=== PATIENT | female | born 1995 | race Caucasian/White ===

== ENCOUNTER 2017-01-17 16:41 | Observation (INO) | payer BC ==
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
[2017-01-17 17:52] LABS: CHLORIDE,CL 109 mmol/L (98-110); SODIUM,NA 139 mmol/L (136-146)
[2017-01-17 18:03] LABS: ACETAMINOPHEN < 3.0 ug/mL
[2017-01-17] MEDS ORDERED: cloNIDine 0.1 MG Tab PO PRN (21:04)
--- NOTE | 2017-01-17 21:04 | PCM.SN ---
- Free Text/Narrative Note: [id number]
[2017-01-17] MEDS ORDERED: Sodium Chloride 0.45% 1,000 ML IV SCH (22:30)
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
[2017-01-18 08:23] VITALS: BP 110/60
[2017-01-18] MEDS ORDERED: cloNIDine 0.1 MG Tab PO SCH (10:00)
--- NOTE | 2017-01-18 10:56 | PCM.PN ---
- General Info Date of Service: 01/18/17 Admission Dx/Problem (Free Text): Patient crying in am . She is concerned about her work and she says she would like to go home. She is afraid that for being admitted for psychiatric care she will loose her job if her employer finds out. Attempt to have telepsych consult failed , due to not being able to connect. Recommended patient transfer to [place]. Discussed with Dr. Orourke , psychiatrist . He accepted patient. Dw with Er physician Dr. Webber, he accepted patient. Dr. Orourke thinks she has to much stress going on . Patient Bp at admission was real 193/103. As per her patient had hypertension of . As per her she had intrusive suicidal thoughts daily for the past 1 mo. As per she was screaming at the baby when she cried and bounce her in the bouncer harder , when she was upset or when baby cried. - Review of Systems General: Reports: no symptoms HEENT: Reports: no symptoms Pulmonary: Reports: no symptoms Cardiovascular: Reports: no symptoms Gastrointestinal: Reports: No symptoms Genitourinary: Reports: no symptoms Musculoskeletal: Reports: no symptoms Skin: Reports: no symptoms Neurological: Reports: no symptoms Psychiatric: Reports: no symptoms - Patient Data Vitals - most recent: Last Vital Signs Temp 99.1 F 01/18/17 08:00 Pulse 62 01/18/17 08:00 Resp 18 01/18/17 08:00 BP 110/60 01/18/17 10:13 Pulse Ox 97 01/18/17 08:00 Weight - most recent: 166 lb 7.184 oz I&O - last 24 hours: Intake & Output 01/17/17 01/18/17 01/18/17 22:59 06:59 14:59 Intake Total 240 Balance 240 Med Orders - Current: Current Medications Clonidine HCl (Catapres) 0.1 mg PO Q8H VENANCIO Last Admin: 01/18/17 10:13 Dose: Not Given Diphenhydramine HCl (Benadryl) 50 mg PO BEDTIME VENANCIO Lorazepam (Ativan) 2 mg PO BEDTIME VENANCIO Quetiapine Fumarate (Seroquel) 100 mg PO BEDTIME VENANCIO Discontinued Medications Clonidine HCl (Catapres) 0.1 mg PO Q8H PRN PRN Reason: sbp>160 Sodium Chloride (Sodium Chloride 0.45%) 1,000 mls @ 150 mls/hr IV ASDIRECTED VENANCIO - Exam General: alert, oriented HEENT: Pupils equal, Pupils reactive, EOMI, Mucous membr. moist/pink Neck: supple Lungs: Clear to auscultation, Normal respiratory effort Cardiovascular: regular rate, regular rhythm Abdomen: bowel sounds present, soft, no tenderness, no distension Back Exam: normal inspection, full range of motion Extremities: no edema Skin: warm, dry, intact Wound/Incisions: healing well Neurological: no new focal deficit Psy/Mental Status: alert, normal affect, labile mood, anxious, depressed. No: agitated, suicidal ideation, homicidal ideation, hallucinations - Problem List Review Problem List Initiated/Reviewed/Updated: Yes - My Orders Last 24 Hours: My Active Orders 01/17/17 20:18 Patient Status [ADT] Routine Oxygen Therapy [RC] PRN Up ad Kassandra [RC] ASDIRECTED VTE/DVT Education [RC] PER UNIT ROUTINE Vital Signs [RC] Q4H Resuscitation Status Routine 01/18/17 10:00 cloNIDine [Catapres] 0.1 mg PO Q8H 01/18/17 10:49 Ready for Discharge [RC] PER UNIT ROUTINE 01/18/17 21:00 LORazepam [Ativan] 2 mg PO BEDTIME QUEtiapine [SEROquel] 100 mg PO BEDTIME diphenhydrAMINE [Benadryl] 50 mg PO BEDTIME A/p psychiatric disorder with suicidal ideation patient to be transferred to [place], accepted by psychiatrist Dr. Orourke and Er physician Dr. Webber. Denies suicidal thoughts today , denies homicidal thoughts. Elevated blood pressure / could be due to stress , hx of hypertension of - f/up Bp and if persistently elevated treat it
[2017-01-18] MEDS ORDERED: diphenhydrAMINE 50 MG Cap PO SCH (21:00)
[2017-01-18] MEDS ORDERED: QUEtiapine 100 MG Tab PO SCH (21:00)
[2017-01-18] MEDS ORDERED: LORazepam 0.5 MG Tab PO SCH (21:00)
--- NOTE | 2017-01-19 16:54 | PCM.SN ---
- Free Text/Narrative Note: [id number]
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
== END 2017-01-18 11:25 ==
LOC: MW.ED 16:41 → MW.ICU 18:37
PROVIDERS: ADMIT Internal Medicine; ATTEND Internal Medicine
DX: R45.851 Suicidal ideations (principal); I10 Essential (primary) hypertension; Z98.890 Other specified postprocedural states
CPT/HCPCS: 80053; 80305; 81001; 81025; 83735; 84443; 84482; 85025; 93005; 99285; G0378; G0480; 36415

== ENCOUNTER 2017-04-28 21:26 | Emergency (ER) | payer BC ==
--- NOTE | 2017-04-28 22:05 | EDM.PDOC ---
ED HPI GENERAL MEDICAL PROBLEM - General Chief Complaint: ENT Problem Stated Complaint: PAIN RT EAR Time Seen by Provider: 04/28/17 22:20 Source of Information: Reports: Patient History Limitations: Reports: No Limitations - History of Present Illness INITIAL COMMENTS - FREE TEXT/NARRATIVE: HISTORY AND PHYSICAL: History of present illness: [21-year-old female with no significant past medical history now complaining of right earache. Patient's had pain in her right ear for several days. No fevers chills sweats or shaking chills. No headache or stiff neck. Otherwise asymptomatic.] Review of systems: As per history of present illness and below otherwise all systems reviewed and negative. Past medical history: As per history of present illness and as reviewed below otherwise noncontributory. Surgical history: As per history of present illness and as reviewed below otherwise noncontributory. Social history: No reported history of drug or alcohol abuse. Family history: As per history of present illness and as reviewed below otherwise noncontributory. Physical exam: HEENT: Atraumatic, normocephalic, pupils reactive, negative for conjunctival pallor or scleral icterus, mucous membranes moist, throat clear, neck supple, nontender, trachea midline. Right TM with erythema bulging and loss of landmarks no perforation normal EAC nontender mastoid no preauricular or cervical, left TM and EAC normal lymphadenopathy Lungs: Clear to auscultation, breath sounds equal bilaterally, chest nontender. Heart: S1S2, regular, negative for clicks, rubs, or JVD. Abdomen: Soft, nondistended, nontender. Negative for masses or hepatosplenomegaly. Negative for costovertebral tenderness. Pelvis: Stable nontender. Genitourinary: Deferred. Rectal: Deferred. Extremities: Atraumatic, negative for cords or calf pain. Neurovascular unremarkable. Neuro: Awake, alert, oriented. Cranial nerves II through XII unremarkable. Cerebellum unremarkable. Motor and sensory unremarkable throughout. Exam nonfocal. Diagnostics: [] Therapeutics: [] Impression: [] Plan: [Signs and symptoms consistent with otitis media right ear in a well-appearing patient with unremarkable vital signs. No further workup or treatment indicated. Amoxicillin given in ED and prescribed. Patient aware to take Motrin Tylenol and follow-up PCP for reevaluation and referral to your nose and throat as needed for treatment failure or further workup] Definitive disposition and diagnosis as appropriate pending reevaluation and review of above. 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 Psychiatric History: Reports: Anxiety, Depression - Infectious Disease History Infectious Disease History: Reports: None - Past Surgical History Other HEENT Surgeries/Procedures: "hematoma removal under eye" Cardiovascular Surgical History: Reports: None GI Surgical History: Reports: None Social & Family History - Family History OBGYN: Reports: - Tobacco Use Smoking Status *Q: Never Smoker Years of Tobacco use: 2 Packs/Tins Daily: 1 Used Tobacco, but Quit: No Month Tobacco Last Used: january Second Hand Smoke Exposure: Yes - Caffeine Use Caffeine Use: Reports: None - Alcohol Use Days Per Week of Alcohol Use: 1 Number of Drinks Per Day: 1 Total Drinks Per Week: 1 - Recreational Drug Use Recreational Drug Use: No ED ROS GENERAL - Review of Systems Review Of Systems: See Below (History of present illness) ED EXAM, GENERAL - Physical Exam Exam: See Below (History of present illness) Course - Vital Signs Last Recorded V/S: Last Vital Signs Temp 36.8 C 04/28/17 21:32 Pulse 74 04/28/17 21:32 Resp 16 04/28/17 21:32 BP 134/77 04/28/17 21:32 Pulse Ox 98 04/28/17 21:32 - Orders/Labs/Meds Meds: Medications Discontinued Medications Generic Name Dose Route Start Last Admin Trade Name Freq PRN Reason Stop Dose Admin Amoxicillin 500 mg 04/28/17 22:28 04/28/17 22:42 Amoxil PO 04/28/17 22:29 500 mg ONETIME ONE Administration Azithromycin 500 mg 04/28/17 22:22 04/28/17 22:43 Zithromax PO 04/28/17 22:23 Not Given ONETIME ONE Departure - Departure Time of Disposition: 22:34 Disposition: Home, Self-Care 01 Condition: Good Clinical Impression: Otitis media of right ear - Discharge Information Prescriptions: Amoxicillin 500 mg PO TID #30 tab Instructions: Otitis Media, Adult, [id number] Referrals: PCP,None [Primary Care Provider] - Forms: ED Department Discharge Additional Instructions: You have a right middle ear infection also called otitis media. Finish amoxicillin as prescribed. Take 800 mg of ibuprofen every 6 hours as needed for pain. He may also take Tylenol as needed for residual pain rest and drink plenty of fluids. Follow-up with your Dr. for reevaluation and referral to an ear nose and throat doctor if your symptoms persist or worsen.
[2017-04-28] MEDS ORDERED: Azithromycin 250 MG Tab PO ONE (22:22)
[2017-04-28] MEDS ORDERED: Amoxicillin 500 MG Cap PO ONE (22:28)
[2017-04-29 04:28] VITALS: BP 127/68
== END 2017-04-28 23:00 | disposition home or self-care (01) ==
LOC: MW.ED 21:26
DX: H66.91 Otitis media, unspecified, right ear (principal); F41.9 Anxiety disorder, unspecified; F32.9 Major depressive disorder, single episode, unspecified; Z79.899 Other long term (current) drug therapy
CPT/HCPCS: 99282; A9270; 99283

== ENCOUNTER 2020-09-07 10:17 | Emergency (ER) | payer BC ==
--- NOTE | 2020-09-07 10:39 | EDM.PDOC ---
ED HPI GENERAL MEDICAL PROBLEM - General Chief Complaint: Genitourinary Problem Stated Complaint: UTI Time Seen by Provider: 09/07/20 10:21 Source of Information: Reports: Patient History Limitations: Reports: No Limitations - History of Present Illness INITIAL COMMENTS - FREE TEXT/NARRATIVE: 24-year-old female with no past medical history presenting with painful urination. She has a history of UTIs in the past and is concerned that she has another UTI. Symptoms started around 2:00 this morning. Denies any fever, chills, flank pain, abdominal pain, or history of immunosuppression. No vaginal bleeding. Past medical history: Reviewed, no additional pertinent history. Surgical history: Reviewed in system, no additional pertinent history. Social history: Reviewed in system, no additional pertinent history. Family history: Reviewed in system, no additional pertinent history. PHYSICAL EXAM Vital signs reviewed. Nursing notes reviewed. Constitutional: Awake, alert, non-distressed. Head: Normocephalic, atraumatic. Eyes: EOMI, conjunctiva normal, no discharge, no scleral icterus. Ears, Nose, Throat: External ears and nose normal, moist oral mucosa. Cardiovascular: 2+ radial pulse, capillary refill less than 2 seconds. Pulmonary: normal work of breathing, no accessory muscle use. Abdomen/GI: Soft, nontender, nondistended, no guarding or rigidity, no masses. Musculoskeletal: No deformities. Integumentary: Appropriate color for ethnicity, warm, dry, no pallor or jaundice, no rash. Neurologic: Alert, answering questions appropriately, normal speech, no facial droop, moving all extremities well. Psychiatric: Appropriate mood and affect, normal thought process. URINARY Pain Score (Numeric/FACES): 4 - Related Data Allergies Allergy/AdvReac Type Severity Reaction Status Date / Time No Known Allergies Allergy Verified 09/07/20 10:33 Home Meds: Home Meds Control 04/28/17 [History] Nortriptyline 40 mg PO DAILY 04/28/17 [History] nitrofurantoin macrocrystaL [Nitrofurantoin] 100 mg PO BID 5 Days #10 capsule 09/07/20 [Rx] Past Medical History - Past Health History Medical/Surgical History: Denies Medical/Surgical History Cardiovascular History: Reports: None Respiratory History: Reports: None Gastrointestinal History: Reports: None MANAGER RELOCATION History: Reports: None Psychiatric History: Reports: Anxiety, Depression - Infectious Disease History Infectious Disease History: Reports: None - Past Surgical History Other HEENT Surgeries/Procedures: "hematoma removal under eye" Cardiovascular Surgical History: Reports: None GI Surgical History: Reports: None Social & Family History - Family History OBGYN: Reports: - Caffeine Use Caffeine Use: Reports: None ED ROS GENERAL - Review of Systems Review Of Systems: See Below ED EXAM, RENAL/ - Physical Exam Exam: See Below Course - Vital Signs Text/Narrative:: 24-year-old female with dysuria. Symptoms seem consistent with an uncomplicated UTI. Symptoms do not suggest pyelonephritis and she looks well and nontoxic. Abdomen soft and nontender. We will plan to empirically treat with nitrofurantoin and encourage primary care follow-up. Recommended Tylenol and Motrin as needed for pain. Stable to discharge home. All questions answered prior to discharge. Last Recorded V/S: Last Vital Signs Temp 37.0 C 09/07/20 10:25 Pulse 89 09/07/20 10:25 Resp 16 09/07/20 10:25 BP 120/83 09/07/20 10:25 Pulse Ox 99 09/07/20 10:25 Departure - Departure Time of Disposition: 10:37 Disposition: Home, Self-Care 01 Condition: Good Clinical Impression: Urinary tract infection Qualifiers: Urinary tract infection type: acute cystitis Hematuria presence: without hematuria Qualified Code(s): N30.00 - Acute cystitis without hematuria - Discharge Information *PRESCRIPTION DRUG MONITORING PROGRAM REVIEWED*: Not Applicable *COPY OF PRESCRIPTION DRUG MONITORING REPORT IN PATIENT YOLANDA: Not Applicable Prescriptions: nitrofurantoin macrocrystaL [Nitrofurantoin] 100 mg PO BID 5 Days #10 capsule Instructions: Urinary Tract Infection, Adult Referrals: Alondra Calderon CHRONIC MANAGER [Primary Care Provider] - 1 Week (As needed.) Forms: ED Department Discharge Additional Instructions: You were seen in the emergency department for painful urination. We going to treat you for UTI with antibiotics, be sure to finish the whole bottle. You can take [id number] Tylenol or Motrin as needed for pain. Follow-up with your primary care clinic with any concerns. Warning signs to come back to the ER include fever of 100.4 or higher, chills, severe flank or abdominal pain, or any other new or worsening symptoms. Please return the emergency department immediately if your symptoms worsen or if you feel worse. Thank you for choosing the [facility] emergency department in [place] for your medical needs today. It was a pleasure caring for you. The following information is given to patients seen in the emergency department who are being discharged. This information is to outline your options for follow-up care. We provide all patients seen in our emergency department with a follow-up referral. The need for follow-up, as well as the timing and circumstances, are variable depending upon the specifics of your emergency department visit. If you don't have a primary care physician on staff, we will provide you with a referral. We always advise you to contact your personal physician following an emergency department visit to inform them of the circumstance of the visit and for follow-up with them and/or the need for any referrals to a consulting specialist. The emergency department will also refer you to a specialist when appropriate. This referral assures that you have the opportunity for follow-up care with a specialist. All of these measure are taken in an effort to provide you with optimal care, which includes your follow-up. Under all circumstances we always encourage you to contact your private physician who remains a resource for coordinating your care. When calling for follow-up care, please make the office aware that this follow-up is from your recent emergency room visit. If for any reason you are refused follow-up, please contact the [facility] Emergency Department at and asked to speak to the emergency department charge nurse. If you do not have a primary care physician that is caring for you, you can contact these clinics below to set up an appointment to establish care: Sarah Beth Melendez [facility] - Primary Care [address] [place], [place] [id number] [facility] [address] [place] [id number] Sepsis Event Note (ED) - Evaluation Sepsis Screening Result: No Definite Risk - Focused Exam Vital Signs: Vital Signs Temp Pulse Resp BP Pulse Ox 09/07/20 10:25 37.0 C 89 16 120/83 99
[2020-09-07 10:52] VITALS: BP 118/76; PULSE 98
== END 2020-09-07 10:52 | disposition home or self-care (01) ==
LOC: MW.ED 10:17
DX: N30.00 Acute cystitis without hematuria (principal)
CPT/HCPCS: 99282; 99283

== ENCOUNTER 2021-08-25 08:12 | Day surgery (SDC) | payer OTHER, BC ==
[2021-08-25] MEDS ORDERED: HYDROmorphone 1 MG/ML Syringe IVPUSH PRN (08:28)
[2021-08-25] MEDS ORDERED: Metoclopramide 10 MG/2 ML SDV IVPUSH PRN (08:28)
[2021-08-25] MEDS ORDERED: Ondansetron 4 MG/2 ML SDV IVPUSH PRN (08:28)
[2021-08-25] MEDS ORDERED: Albuterol 0.083% 2.5 MG/3 ML Neb Soln NEB PRN (08:28)
[2021-08-25] MEDS ORDERED: fentaNYL 100 MCG/2 ML SDV IVPUSH PRN (08:28)
[2021-08-25] MEDS ORDERED: Naloxone 0.4 MG/ML SDV IVPUSH PRN (08:28)
[2021-08-25] MEDS ORDERED: Morphine 2 MG/ML SYRINGE IVPUSH PRN (08:28)
[2021-08-25] MEDS ORDERED: Scopolamine 1.5 MG Transdermal Patch ONE (08:31)
--- NOTE | 2021-08-25 09:01 | PCM.PREANE ---
Preanesthetic Assessment - Anesthesia/Transfusion/Family Hx Anesthesia History: Prior Anesthesia Without Reaction Transfusion History: No Prior Transfusion(s) - Review of Systems General: No Symptoms Pulmonary: No Symptoms Cardiovascular: No Symptoms Gastrointestinal: No Symptoms Neurological: No Symptoms Other: Reports: None - Physical Assessment NPO Status Date: 08/25/21 NPO Status Time: 00:00 Vital Signs: Last Vital Signs Temp 97.2 F 08/25/21 08:26 Pulse 83 08/25/21 08:26 Resp 16 08/25/21 08:26 BP 135/90 08/25/21 08:26 Pulse Ox 97 08/25/21 08:26 Height: 5 ft 9 in Weight: 184 lb ASA Class: 3 Mental Status: Alert & Oriented x3 Airway Class: Mallampati = 2 Dentition: Reports: Normal Dentition Thyro-Mental Finger Breadths: 3 Mouth Opening Finger Breadths: 3 ROM/Head Extension: Full Lungs: Clear to Auscultation, Normal Respiratory Effort Cardiovascular: Regular Rate, Regular Rhythm - Allergies Allergies/Adverse Reactions: Allergies Allergy/AdvReac Type Severity Reaction Status Date / Time No Known Allergies Allergy Verified 09/07/20 10:33 - Blood Blood Available: No - Anesthesia Plan Pre-Op Medication Ordered: Other - Acknowledgements Anesthesia Type Planned: General Anesthesia Pt an Appropriate Candidate for the Planned Anesthesia: Yes Alternatives and Risks of Anesthesia Discussed w Pt/Guardian: Yes Pt/Guardian Understands and Agrees with Anesthesia Plan: Yes PreAnesthesia Questionnaire - Past Health History Medical/Surgical History: Denies Medical/Surgical History HEENT History: Reports: None Cardiovascular History: Reports: None Respiratory History: Reports: Asthma Other Respiratory History: exercise induced asthma Gastrointestinal History: Reports: None Genitourinary History: Reports: Other (See Below) Other Genitourinary History: presently on antibiotics for UTI UTILITY TENDER CARDING History: Reports: Musculoskeletal History: Reports: Back Pain, Chronic, Fracture, Neck Pain, Chronic Other Musculoskeletal History: hx fx leg as a child Neurological History: Reports: None Psychiatric History: Reports: Anxiety, Depression Endocrine/Metabolic History: Reports: None Hematologic History: Reports: None Immunologic History: Reports: None Oncologic (Cancer) History: Reports: None Dermatologic History: Reports: None - Infectious Disease History Infectious Disease History: Reports: None - Past Surgical History Head Surgeries/Procedures: Reports: None HEENT Surgical History: Reports: Other (See Below) Other HEENT Surgeries/Procedures: "hematoma removal under eye" as a child Cardiovascular Surgical History: Reports: None Respiratory Surgical History: Reports: None GI Surgical History: Reports: None Female Surgical History: Reports: None Endocrine Surgical History: Reports: None Neurological Surgical History: Reports: None Musculoskeletal Surgical History: Reports: None Oncologic Surgical History: Reports: None Dermatological Surgical History: Reports: None - SUBSTANCE USE Tobacco Use Status *Q: Never Tobacco User - HOME MEDS Home Medications: Home Meds Albuterol Sulfate [Albuterol Sulfate HFA] 2 puff INH ASDIRECTED 08/20/21 [History] - CURRENT (IN HOUSE) MEDS Current Meds: Current Medications Albuterol (Albuterol 0.083% 2.5 Mg/3 Ml Neb Soln) 2.5 mg NEB ONETIME PRN PRN Reason: Wheezing Droperidol (Droperidol 5 Mg/2 Ml Sdv) 0.625 mg IVPUSH ONETIME PRN PRN Reason: Nausea/Vomiting Fentanyl (Fentanyl 100 Mcg/2 Ml Sdv) 50 mcg IVPUSH Q5M PRN PRN Reason: Pain (mild 1-3) Hydromorphone HCl (Hydromorphone 1 Mg/Ml Syringe) 1 mg IVPUSH Q10M PRN PRN Reason: Pain (moderate 4-6) Metoclopramide HCl (Metoclopramide 10 Mg/2 Ml Sdv) 10 mg IVPUSH ONETIME PRN PRN Reason: Nausea/Vomiting Morphine Sulfate (Morphine 2 Mg/Ml Syringe) 2 mg IVPUSH Q10M PRN PRN Reason: Pain (severe 7-10) Naloxone HCl (Naloxone 0.4 Mg/Ml Sdv) 0.1 mg IVPUSH ASDIRECTED PRN PRN Reason: Respiratory Depression Ondansetron HCl (Ondansetron 4 Mg/2 Ml Sdv) 4 mg IVPUSH ONETIME PRN PRN Reason: Nausea/Vomiting Discontinued Medications Scopolamine (Scopolamine 1.5 Mg Transdermal Patch) Confirm Administered Dose 1.5 mg .ROUTE .STK-MED ONE Stop: 08/25/21 08:32
[2021-08-25] MEDS ORDERED: Dexmedetomidine 200 MCG/2 ML SDV ONE (09:20)
[2021-08-25] MEDS ORDERED: Midazolam 1 MG/ML 2 ML SDV ONE (09:20)
[2021-08-25] MEDS ORDERED: fentaNYL 100 MCG/2 ML SDV ONE (09:20)
[2021-08-25] MEDS ORDERED: Ondansetron 4 MG/2 ML SDV ONE (09:20)
[2021-08-25] MEDS ORDERED: Sugammadex Sodium 200 MG/2 ML VIAL ONE (09:20)
[2021-08-25] MEDS ORDERED: Dexamethasone 4 MG/ML 5 ML MDV ONE (09:20)
[2021-08-25] MEDS ORDERED: Lidocaine 2% 5 ML SDV ONE (09:20)
[2021-08-25] MEDS ORDERED: Rocuronium Bromide 50 MG/5 ML Syringe ONE (09:20)
[2021-08-25] MEDS ORDERED: Ketorolac 30 MG/ML SDV ONE (09:20)
[2021-08-25] MEDS ORDERED: Propofol 200 MG/20 ML SDV ONE (09:20)
[2021-08-25] MEDS ORDERED: Lidocaine 1% with EPINEPHrine 1:100,000 20 ML MDV ONE (09:53)
[2021-08-25] MEDS ORDERED: Methylene Blue 50 MG/10 ML Ampule ONE (09:53)
[2021-08-25] MEDS ORDERED: Bupivacaine 0.25% 10 ML SDV ONE (10:51)
[2021-08-25] MEDS ORDERED: Bupivacaine 0.5% 10 ML SDV ONE (10:51)
--- NOTE | 2021-08-25 11:53 | PCM.OPNOTE ---
- General Post-Op/Procedure Note Date of Surgery/Procedure: 08/25/21 Operative Procedure(s): Diagnostic laparoscopy with chromotubation Findings: Normal appearing anteverted uterus, sounded to 8cm. Normal appearing right fallopian tube and ovary. Right fallopian tube readily filled with dye during chromotubation. Left ovary with small corpus luteal cyst. Left fallopian tube normal appearing except for a small, <1cm simple appearing paratubal cyst. Left fallopian tube sluggish to fill with dye during chromotubation. Cervix with small portions of non-uptake of Lugol's solution near the cervical os at the 12 o'clock and 6 o'clock positions. Thin, translucent adhesions noted from the omentum to the left pelvic side wall. Pre Op Diagnosis: Pelvic pain. Cervical dysplasia Post-Op Diagnosis: Pelvic pain. Cervical dysplasia Anesthesia Technique: General ET Tube Primary Surgeon: Cady Manrique Anesthesia Provider: Fidelina Posey Pleasure Craft Sailor: Alida Delgado Pathology: Anterior and posterior ectocervix. Endocervix. Fluid Replacement, Intraop: 800 Output, Urine Amount: 30 EBL in mLs: 30 Complications: None known Condition: Good Free Text/Narrative:: Dictation #[id number]
--- NOTE | 2021-08-25 11:58 | PCM48HPAN ---
Post Anesthesia Note - EVALUATION WITHIN 48HRS OF ANESTHETIC Vital Signs in Normal Range: Yes Patient Participated in Evaluation: Yes Respiratory Function Stable: Yes Airway Patent: Yes Cardiovascular Function Stable: Yes Hydration Status Stable: Yes Pain Control Satisfactory: Yes Nausea and Vomiting Control Satisfactory: Yes Mental Status Recovered: Yes Vital Signs: Last Vital Signs Temp 97.2 F 08/25/21 08:26 Pulse 83 08/25/21 08:26 Resp 16 08/25/21 08:26 BP 135/90 08/25/21 08:26 Pulse Ox 97 08/25/21 08:26
--- NOTE | 2021-08-25 11:58 | PCM.POSTAN ---
POST ANESTHESIA ASSESSMENT - MENTAL STATUS Mental Status: Alert, Oriented - VITAL SIGNS Vital Signs: Last Vital Signs Temp 97.2 F 08/25/21 08:26 Pulse 83 08/25/21 08:26 Resp 16 08/25/21 08:26 BP 135/90 08/25/21 08:26 Pulse Ox 97 08/25/21 08:26 - RESPIRATORY Respiratory Status: Respiratory Rate WNL, Airway Patent, O2 Saturation Stable - CARDIOVASCULAR CV Status: Pulse Rate WNL, Blood Pressure Stable - GASTROINTESTINAL GI Status: No Symptoms - POST OP HYDRATION Hydration Status: Adequate & Stable
[2021-08-25 13:12] VITALS: BP 106/53; PULSE 63
--- NOTE | 2021-08-25 13:23 | OR ---
SURGEON: CADY ROBERTSON MD DATE OF PROCEDURE: 08/25/2021 PREOPERATIVE DIAGNOSES: 1. Pelvic pain. 2. Cervical dysplasia. POSTOPERATIVE DIAGNOSES: 1. Pelvic pain. 2. Cervical dysplasia. PROCEDURE PERFORMED: 1. Diagnostic laparoscopy with chromotubation. 2. Loop electro-excisional procedure. PRIMARY SURGEON: Cady Robertson MD AUTOMATION ARCHITECT: Alida Delgado M.D. ANESTHESIA: General endotracheal. COMPLICATIONS: None known. ANESTHESIA PROVIDER: Fidelina Noonan CRNA FINDINGS: Normal-appearing anteverted uterus sounded to 8 cm and normal-appearing right fallopian tube and ovary. Right fallopian tube readily filled with dye during the chromotubation. Left ovary with small corpus luteal cyst. Left fallopian tube, normal-appearing except for a small less than 1 cm simple-appearing paratubal cyst located near the fimbria. Left fallopian tube sluggish to fill with dye during chromotubation. Cervix with small portions of nonuptake of Lugol solution near the cervical os at the 12 and 6 o'clock positions. INDICATIONS: The patient is a 25-year-old female with a history of a high-grade Pap smear in October 2020 followed by colposcopy with biopsies of CHE 2. In addition, she developed left pelvic pain especially during intercourse and had multiple imaging modalities to assess this area with possible adnexal mass. PROCEDURE IN DETAIL: The patient was taken to the operating room where anesthesia was introduced, and a time-out was held. She was prepped and draped in normal sterile fashion. Attention was turned to the vaginal portion of the laparoscopy. A speculum was introduced into the vagina to visualize the cervix, which was grasped at 12 o'clock with a single-tooth tenaculum. The cervix was then serially dilated to an 8 Hegar, and a Zumi manipulator was inserted without difficulty. The single- tooth tenaculum and speculum were then removed, and attention was then turned to the abdominal portion of the procedure. Local anesthetic was injected infraumbilically, and a 5 mm incision was made with a scalpel. Veress needle was inserted into the incision; however, difficulty was noted achieving entrance to the peritoneal cavity with a Veress needle. The abdominal cavity was then entered via direct visualization with the trocar and camera. After adequate insufflation of the abdomen, the patient was placed into Trendelenburg position, and the left lower quadrant port was placed after the introduction of local anesthetic. The trocar was placed under direct visualization. Findings noted as above. Small adhesions noted between the omentum and the left pelvic sidewall, which were gently taken down. Hemostasis was noted. Chromotubation was then performed. Findings noted as above. All instruments were then removed from the abdomen, and after adequate desufflation, the 2 port sites were then closed subcutaneously with 4-0 Monocryl and bandages. Attention was then turned to the LEEP procedure. The Zumi manipulator was removed. A coated speculum was then inserted into the vagina along with sidewall retractors. Local anesthetic with epinephrine was then injected circumferentially around the cervix. Lugol's solution was then applied to the cervix finding things noted as above. A 20 x 8 electrode was then used to remove the ectocervix anteriorly. Similar procedure was performed posteriorly, and the specimens were marked appropriately with suture at the 12 and 6 o'clock positions. A 10 x 4 square electrode was then used to obtain a sample from the endocervix. The area of the LEEP procedure was then treated with cautery via rollerball. Hemostasis was achieved. Monsel solution was placed over the cervix, and hemostasis was noted. Estimated blood loss for the procedure was 30 mL. The patient tolerated the procedure well. She received 2 g of Ancef prophylactically prior to the procedure, was taken to the PACU in stable condition for recovery. ALDAIR CONWAY /[id number] GOSIA
== END 2021-08-25 13:14 | disposition home or self-care (01) ==
LOC: MW.SDS 08:12
PROVIDERS: ATTEND Obstetrics & Gynecology
DX: D06.0 Carcinoma in situ of endocervix (principal); E66.9 Obesity, unspecified; F41.9 Anxiety disorder, unspecified; F32.A Depression, unspecified; N39.0 Urinary tract infection, site not specified; Z79.899 Other long term (current) drug therapy; Z68.27 Body mass index [BMI] 27.0-27.9, adult
CPT/HCPCS: 57522; 58350; 88307; J0131; J1100; J1885; J2250; J2405; J2704; J3010; J3490; 00952

== ENCOUNTER 2022-07-12 20:37 | Emergency (ER) | payer BC ==
[2022-07-12 22:07] LABS: CARBON DIOXIDE,CO2 26.4 mmol/L (21.0-32.0); POTASSIUM,K 3.8 mmol/L (3.5-5.1)
[2022-07-12 22:20] VITALS: BP 114/65; PULSE 79
== END 2022-07-12 22:21 | disposition still patient (30) ==
LOC: MW.ED 20:37
DX: O9A.213 Injury, poisoning and certain other consequences of external causes complicating pregnancy, third trimester (principal); T75.4XXA Electrocution, initial encounter; J45.909 Unspecified asthma, uncomplicated; Z3A.33 33 weeks gestation of pregnancy
CPT/HCPCS: 36415; 80048; 83735; 84484; 85025; 93005; 93010; 99283; 99284

== ENCOUNTER 2022-08-28 08:32 | Inpatient (IN) | payer BC ==
[2022-08-28] MEDS ORDERED: Citric Acid/Sodium Citrate Solution 30 ML Cup PO ONE (10:50)
[2022-08-28] MEDS ORDERED: Famotidine 20 MG/2 ML SDV IV ONE (10:50)
[2022-08-28] MEDS ORDERED: ceFAZolin 1 GM Vial IVPUSH ONE (11:00)
[2022-08-28] MEDS ORDERED: Ropivacaine 0.5% 5 MG/ML 30 ML SDV INFILT ONE (11:00)
[2022-08-28] MEDS ORDERED: Ondansetron 4 MG/2 ML SDV IVPUSH ONE (11:00)
[2022-08-28] MEDS ORDERED: Morphine PF 10 MG/10 ML SDV IVPUSH ONE (11:00)
[2022-08-28] MEDS ORDERED: Dexmedetomidine 200 MCG/2 ML SDV IV ONE (11:00)
[2022-08-28] MEDS ORDERED: Dexamethasone 4 MG/ML 5 ML MDV IVPUSH ONE (11:00)
[2022-08-28] MEDS ORDERED: Phenylephrine HCl In 0.9% NaCl 1 MG/10 ML Vial IVPUSH ONE (11:00)
[2022-08-28] MEDS ORDERED: Bupivacaine 0.5% 10 ML SDV INFILT ONE (11:00)
[2022-08-28] MEDS ORDERED: Water For Injection, Sterile 20 ML SDV INJECT ONE (11:00)
[2022-08-28] MEDS ORDERED: Lactated Ringers 1,000 ML IV ONE ×2 (11:00→12:08)
[2022-08-28] MEDS ORDERED: Oxytocin 10 Units/1 ML SDV IV ONE (11:00)
[2022-08-28] MEDS ORDERED: Ketorolac 30 MG/ML SDV IVPUSH ONE ×2 (14:00→23:00)
[2022-08-29] MEDS ORDERED: Lactated Ringers 1,000 ML IV ONE (00:10)
[2022-08-29] MEDS ORDERED: Ketorolac 30 MG/ML SDV IVPUSH ONE ×2 (04:45→12:00)
[2022-08-29] MEDS ORDERED: Sodium Ferric Gluconate Cmplex 125 MG in Sodium Chloride 0.9% 100 ML IV ONE (10:05)
[2022-08-29] MEDS ORDERED: Acetaminophen/oxyCODONE 325-5 MG Tab PO ONE ×4 (10:40→22:15)
[2022-08-29] MEDS ORDERED: Ibuprofen 800 MG Tab PO ONE (18:00)
[2022-08-30] MEDS ORDERED: Acetaminophen/oxyCODONE 325-5 MG Tab PO ONE ×2 (05:31→08:00)
[2022-08-30] MEDS ORDERED: Ibuprofen 800 MG Tab PO ONE (05:31)
== END 2022-08-30 11:00 | disposition home or self-care (01) | DRG 540 ==
LOC: MW.OBCHECK 08:32 → MW.ZCENSUS 08:40 → OBSVTOIN 11:24
PROVIDERS: ADMIT Obstetrics & Gynecology; ATTEND Obstetrics & Gynecology
PROC: 10D00Z1 Extraction of Products of Conception, Low, Open Approach (ICD-10-PCS; principal; 2022-08-28)
DX: O48.0 Post-term pregnancy (principal); Z3A.40 40 weeks gestation of pregnancy; Z37.0 Single live birth; O99.02 Anemia complicating childbirth; D62 Acute posthemorrhagic anemia; O69.81X0 Labor and delivery complicated by cord around neck, without compression, not applicable or unspecified
CPT/HCPCS: 01961; 59025; 64488; A9270-GY; J0690; J1100; J1885; J2274; J2405; J2590; J2795; J3490; J7120